=== PATIENT | female | born 2005 | race Caucasian/White ===

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

== ENCOUNTER 2025-01-16 19:10 | Outpatient (REF) | payer MEDICAID, SELFPAY | END 2025-01-16 19:11 | disposition home or self-care (01) | LOC: LBN 19:10 | PROVIDERS: PCP Nurse Practitioner Family; Visit Provider Physician Assistant Medical | DX: J02.9 Acute pharyngitis, unspecified (principal) | CPT/HCPCS: 87070 ==

== ENCOUNTER 2025-04-20 07:49 | Emergency (ER) | payer MEDICAID, SELFPAY ==
[2025-04-20 08:02] VITALS: BP 147/81; PULSE 58; RESP 10; TEMP 36.4; O2SAT 98
[2025-04-20 08:15] LABS: Glucose Negative (Negative)
--- NOTE | 2025-04-20 08:15 | W.ED.GENAD ---
Discharge Plan Disposition Patient Disposition: Home Condition: Stable Discharge Details Clinical Impression: Cannabinoid hyperemesis syndrome, Acute dehydration, Nausea & vomiting Primary Care Provider: Elizabeth Hicks ED Provider: Agustina Laura Home Meds and New Rx's Prescriptions: New promethazine 12.5 mg tablet 12.5 mg PO TID PRN (Reason: nausea and vomiting) Qty: 7 0RF Rx Instructions: Take 1 tablet by mouth 3 times daily as needed for nausea and vomiting promethazine [Promethegan] 25 mg suppository 25 mg HI Q12H PRN (Reason: nausea and vomiting) Qty: 12 0RF Rx Instructions: Use 1 suppository per rectum as needed for unresolved nausea vomiting No Action ondansetron HCl 4 mg tablet 4 mg PO Q8H PRN (Reason: nausea and vomiting) Qty: 14 0RF levonorgestrel-ethinyl estrad [Chateal EQ (28)] 0.15-0.03 mg tablet 1 tab PO DAILY Qty: 84 3RF Discharge Instructions Instructions: Dehydration, Adult ED, Nausea and Vomiting, Adult ED, Cannabis hyperemesis syndrome Additional Instructions: Please sustain from using marijuana for 3 days to see if this helps with the nausea vomiting. Please take the medications as prescribed. They may make you sleepy. Please drink Gatorade or similar electrolytes while having the vomiting for the next couple of days. You may also take Carafate or sulcrafate which you can get [id number]. Follow up with primary care provider in 3-5 days. Return to ED sooner if any worsening or concerns. Increase oral fluids Referrals: Elizabeth Hicks, AGRICULTURAL SCIENCES PROFESSOR [Primary Care Provider, Pediatrics [facility]] - 5 days Clinical Impression: Nausea & vomiting Discharge Data Discharge Date/Time-TO BE ENTERED AT DEPARTURE: 04/20/25 10:25 HPI General Mode of arrival: ambulatory. Date/Time Provider Initiated Documentation: 04/20/25 08:06. Limitations to Documentation: no limitations. Information obtained by: patient, RN notes reviewed and old records reviewed. HPI Narrative: 19-year-old female presents to the ER with a chief complaint of nausea vomiting since 3:00 this morning. Patient does endorse vaping and daily cannabis use, she denies any abdominal pain denies any fever or chills. Denies any problems urinating. She did have Roland last night before bed. She states that she tried a adrienne daniella this morning and was unable. Negative test per cruise staff member prior to my evaluation. She is ANO x 4. Denies any recent travel. Denies any history of abdominal surgeries. Related Data Home Medications ?Medication ?Instructions ?Recorded ?Confirmed ondansetron HCl 4 mg tablet 4 mg PO Q8H PRN nausea and 07/04/22 04/20/25 vomiting #14 tabs levonorgestrel 0.15 mg-ethinyl 1 tab PO DAILY #84 tabs 05/14/24 04/20/25 estradiol 0.03 mg tablet (Chateal EQ (28)) promethazine 12.5 mg tablet 12.5 mg PO TID PRN nausea and 04/20/25 vomiting #7 tabs promethazine 25 mg rectal 25 mg HI Q12H PRN nausea and 04/20/25 suppository (Promethegan) vomiting #12 ea Previous Rx's ?Medication ?Instructions ?Recorded ondansetron HCl 4 mg tablet 4 mg PO Q8H PRN nausea and 07/04/22 vomiting #14 tabs levonorgestrel 0.15 mg-ethinyl 1 tab PO DAILY #84 tabs 05/14/24 estradiol 0.03 mg tablet (Chateal EQ (28)) promethazine 12.5 mg tablet 12.5 mg PO TID PRN nausea and 04/20/25 vomiting #7 tabs promethazine 25 mg rectal 25 mg HI Q12H PRN nausea and 04/20/25 suppository (Promethegan) vomiting #12 ea Allergies Allergy/AdvReac Type Severity Reaction Status Date / Time No Known Allergies Allergy Verified 04/20/25 08:06 General Stated Complaint: Nausea/Vomit/Diar BETZAIDA: 3 Review of Systems All systems reviewed & are unremarkable except as noted in HPI and below Gastrointestinal Gastrointestinal: Reports nausea and Reports vomiting Exam Narrative Exam Narrative: Constitutional: Alert and oriented x3. Appears stated age. Normal body habitus. Head: Normocephalic, no trauma. Eyes: Pupils PERRL, Red reflex noted, EOM's intact. Eyelids symmetrical without lesions, discharge, or swelling. ENT: Bilateral TM's WNL, External ear normal to inspection, no mastoid TTP, swelling, or erythema, Nasal turbinates WNL, no nasal discharge. Normal dentition, Posterior pharynx WNL, no exudate. Chest: RRR, Normal S1, S2, distal pulses intact. Resp: Lungs clear to auscultation bilaterally, no wheezes, rales, or rhonchi. Abdomen: Soft, non-distended, Normoactive bowel sounds all 4 quads. Musculoskeletal: Normal gait, Moves all 4 extremities without difficulty. Skin: No suspicious rashes or lesions. Capillary refill less than 2 sec. Neurologic: Cranial nerves II-XII intact. Alert and oriented x 3. Motor: No deficits noted. Sensory: Intact bilaterally all 4 extremities. Hematologic/Lymphatic: No ecchymosis, no lymphadenopathy. Constitutional: Alert and oriented x3. Appears stated age. Normal body habitus. Course Vital Signs Vital signs: Vital Signs Temperature 36.4 C L 04/20/25 08:02 Pulse 58 L 04/20/25 08:02 Respiratory Rate 10 L 04/20/25 08:02 Blood Pressure 147/81 H 04/20/25 08:02 Pulse Oximetry 98 04/20/25 08:02 Temperature 36.4 C L 04/20/25 08:02 Temperature Source Oral 04/20/25 08:02 Pulse 58 L 04/20/25 08:02 Respiratory Rate 10 L 04/20/25 08:02 Blood Pressure 147/81 H 04/20/25 08:02 Blood Pressure Position Sitting 04/20/25 08:02 Pulse Oximetry 98 04/20/25 08:02 Oxygen Delivery Method Room Air 04/20/25 08:02 Oxygen Flow Rate 0 04/20/25 08:02 Lab/Test Results Lab/Test Results: POC- Test(urine) Negative Medical Decision Making 19-year-old female presents to the ER with a chief complaint of nausea vomiting since 3:00 this morning. Patient does endorse vaping and daily cannabis use, she denies any abdominal pain denies any fever or chills. Denies any problems urinating. She did have Roland last night before bed. She states that she tried a adrienne daniella this morning and was unable. Negative test per cruise staff member prior to my evaluation. She is ANO x 4. Denies any recent travel. Denies any history of abdominal surgeries. Workup ordered including CBC CMP lipase U hCG negative. 1 L normal saline 5 mg Reglan and 20 mg of Pepcid. Differential diagnosis includes not limited to hyperemesis cannabinoid syndrome, gastroenteritis, viral illness, less likely appendicitis as patient has no right lower quadrant or abdominal tenderness, urinary tract infection, pyelonephritis urinalysis is pending at this time. On patient reevaluation she reports she is feeling somewhat better still slightly nauseous is willing to try p.o. challenge. IV is still infusing without difficulty. Patient given crackers and water for p.o. challenge. Patient reevaluation she has not vomited again discussed home care strict return instructions she verbalized standing. Patient discharged ANO times 3, ambulatory from department. This text was generated using [employer] dictation system, please disregard any oddities of phrase or misspellings. Lab Data Lab results reviewed: Yes I reviewed the patient's lab results. Labs: Laboratory Tests Range/Units 04/20/25 04/20/25 07:55 08:32 WBC (4.4-10.8) 10^3/uL 7.40 RBC (3.93-5.22) 10^6/uL 4.87 Hgb (11.2-15.7) g/dL 15.1 Hct (36.0-46.0) % 43.5 MCV (80-95) fL 89 MCH (27.0-33.0) pg 31.0 MCHC (32.0-36.0) % 34.7 RDW (11.7-14.6) % 12.4 Plt Count (130-400) 10^3/uL 319 MPV (8.0-11.0) fL 9.7 Immature Gran % % 0.3 Neutrophils % % 80.5 Lymphocytes % % 16.8 Monocytes % % 1.9 Eosinophils % % 0.1 Basophils % % 0.4 Nucleated RBC % (0.0-0.3) % 0.0 Absolute Neutrophils (1.2-6.7) 10^3/uL 5.96 Absolute Lymphocytes (1.2-3.4) 10^3/uL 1.24 Absolute Monocytes (0.1-0.8) 10^3/uL 0.14 Absolute Eosinophils (0.0-0.7) 10^3/uL 0.01 Absolute Basophils (0.0-0.2) 10^3/uL 0.03 Sodium (136-145) mmol/L 140 Potassium (3.5-5.1) mmol/L 3.9 Chloride (98-107) mmol/L 101 Carbon Dioxide (21.0-32.0) mmol/L 27.3 Anion Gap (3-11) mmol/L 11.7 H BUN (7-18) mg/dL 13 Creatinine (0.55-1.02) mg/dL 0.7 Est GFR (CKD-EPI 2020) (mL/min/1.73m2) 127.69 Glucose (74-106) mg/dL 146 H Calcium (8.5-10.1) mg/dL 9.8 Magnesium (1.8-2.4) mg/dL 1.8 Total Bilirubin (0.2-1.0) mg/dL 0.5 AST (15-37) U/L 21 ALT (14-59) U/L 26 Alkaline Phosphatase (46-116) U/L 81 Total Protein (6.4-8.2) g/dL 8.2 Albumin (3.4-5.0) g/dL 4.8 Lipase (<78) U/L 30 Urine Color (Yellow) Yellow Urine Clarity (Clear) Sl Cloudy Urine pH (5-8) 6.5 Ur Specific [place] (1.005-1.025) >= 1.030 H Urine Protein (Neg-Trace) mg/dL 100 H Urine Ketones (Negative) mg/dL 15 H Urine Blood (Negative) Trace-intact H Urine Nitrite (Negative) Negative Urine Bilirubin (Negative) Negative Urine Urobilinogen (Up to 0.2) mg/dL 0.2 Ur Leukocyte Esterase (Negative) Negative Urine RBC (0-2) HPF 0-2 Urine WBC (0-5) HPF 0-2 Ur Epithelial Cells (Negative) HPF Many Urine Crystals (Negative) HPF Negative Urine Bacteria (Negative) HPF Moderate Urine Casts (Negative) LPF Negative Urine Mucus (Negative) Moderate Ur Culture Indicated? No Urine Glucose (Negative) mg/dL Negative PFSH All Active Problems (Updated 04/20/25 @ 10:11 by Agustina Laura NP) Acute dehydration (Acute) Cannabinoid hyperemesis syndrome (Acute) Gardnerella vaginalis infection (Acute) Vaginal discharge (Acute) Hx of colonoscopy (Chronic) [facility] [place] RUQ pain (Acute) Nausea & vomiting (Acute) normal endoscopy 05[place]02/20[place] [facility] [place] Contusion of right hand (Acute) Lymphadenopathy (Acute) Pelvic pain (Acute) Depression (Chronic) Per registration form Anxiety (Chronic) Per registration form Constipation (Acute) Gastritis (Acute) Ovarian cyst (Acute) Wheezing (Acute) Per registration form asthma or wheezing Vision problems (Acute) Per registration form, seeing far away up close Healthy adolescent (Acute) Medical History History of behavioral and mental health problems Per registration form Heart murmur of Full term 38 weeks 6 lb 13 oz Surgical History History of dental surgery Family History Father Age: 53 No problems noted. Mother Age: 43 Alcohol abuse Asthma Depression Anxiety Paternal Grandfather Hypertension Grandparent unspecified side or gender history of hypertension Heart disease Grandparent unspecified side or gender with history of heart disease Diabetes Grandparent unspecified side or gender with history of diabetes Social History Smoking/Tobacco Use Status: Never Second Hand Exposure: Yes Smoking risk assessment performed?: Yes Alcohol Intake: never Drug use: Never Substance use type: does not use Education Level: high school Details: 12th grade [employer] Pets and animals: Yes Pets and animals: cat(s) and dog(s) Seatbelt use: always Do you feel safe at home: Yes Do you feel safe in your relationship?: Yes
[2025-04-20 08:25] LABS: RBC 0-2 HPF (0-2); WBC 0-2 HPF (0-5)
[2025-04-20 08:26] LABS: C & S Indicated? No
[2025-04-20] MEDS: Normal Saline 1,000 ML 1000 ML IV (08:41)
[2025-04-20] MEDS: Metoclopramide 10 MG/2 ML VIAL 5 MG IVP (08:42)
[2025-04-20] MEDS: Famotidine 20 MG/2 ML VIAL IVP (08:43)
[2025-04-20 08:48] LABS: Abs Immature Grans 0.02 10^3/uL (0.0-0.06); HCT 43.5 % (36.0-46.0); HGB 15.1 g/dL (11.2-15.7); Immature Grans % 0.3 %; MCH 31.0 pg (27.0-33.0); MCHC 34.7 % (32.0-36.0); MCV 89 fL (80-95); MPV 9.7 fL (8.0-11.0); Platelet Count 319 10^3/uL (130-400); RBC 4.87 10^6/uL (3.93-5.22); RDW 12.4 % (11.7-14.6); RDW-SD 40.5 fL; WBC 7.40 10^3/uL (4.4-10.8)
[2025-04-20 08:58] LABS: Lipase 30 U/L (<78)
[2025-04-20 09:01] LABS: ALT 26 U/L (14-59); AST 21 U/L (15-37); Albumin 4.8 g/dL (3.4-5.0); Alkaline Phosphatase 81 U/L (46-116); Anion Gap 11.7 mmol/L (3-11); BUN 13 mg/dL (7-18); Bilirubin, Total 0.5 mg/dL (0.2-1.0); CO2 27.3 mmol/L (21.0-32.0); Calcium 9.8 mg/dL (8.5-10.1); Chloride 101 mmol/L (98-107); Estimated GFR 127.69 (mL/min/1.73m2); Glucose 146 mg/dL (74-106); Magnesium 1.8 mg/dL (1.8-2.4); Potassium 3.9 mmol/L (3.5-5.1); Sodium 140 mmol/L (136-145); Total Protein 8.2 g/dL (6.4-8.2)
== END 2025-04-20 10:25 | disposition home or self-care (01) ==
PROVIDERS: Emergency Medicine; Emergency Provider Registered Nurse Emergency; PCP Nurse Practitioner Family
DX: R11.2 Nausea with vomiting, unspecified (principal); F12.90 Cannabis use, unspecified, uncomplicated; E86.0 Dehydration
CPT/HCPCS: 80053; 81025; 83690; 96361; 96374; 96375; 99284; 81003; 81015; 83735; 85025; J2765

== ENCOUNTER 2025-06-29 11:58 | Outpatient (REF) | payer MEDICAID, SELFPAY ==
[2025-06-29 14:30] LABS: HCT 44.5 % (36.0-46.0); HGB 15.2 g/dL (11.2-15.7); MCH 30.9 pg (27.0-33.0); MCHC 34.2 % (32.0-36.0); MCV 90 fL (80-95); MPV 10.1 fL (8.0-11.0); Platelet Count 303 10^3/uL (130-400); RBC 4.92 10^6/uL (3.93-5.22); RDW 12.0 % (11.7-14.6); RDW-SD 39.8 fL; WBC 6.68 10^3/uL (4.4-10.8)
[2025-06-29 15:03] LABS: ALT 17 U/L (14-59); AST 15 U/L (15-37); Albumin 4.7 g/dL (3.4-5.0); Alkaline Phosphatase 67 U/L (46-116); Anion Gap 10.7 mmol/L (3-11); BUN 10 mg/dL (7-18); Bilirubin, Total 0.7 mg/dL (0.2-1.0); CO2 26.3 mmol/L (21.0-32.0); Calcium 10.1 mg/dL (8.5-10.1); Chloride 101 mmol/L (98-107); Estimated GFR 127.69 (mL/min/1.73m2); Glucose 71 mg/dL (74-106); Potassium 5.0 mmol/L (3.5-5.1); Sodium 138 mmol/L (136-145); TSH 0.52 uIU/mL (0.52-4.13); Total Protein 8.2 g/dL (6.4-8.2)
== END 2025-06-29 11:59 | disposition home or self-care (01) ==
LOC: NCHCN 11:58
DX: R53.83 Other fatigue (principal)
CPT/HCPCS: 80053; 85027; 84443

== ENCOUNTER 2025-07-24 14:15 | Outpatient (REF) | payer MEDICAID, SELFPAY ==
[2025-07-24 22:04] LABS: Vitamin D 25 Total 10 ng/mL (20-100)
[2025-07-24 22:08] LABS: Magnesium 2.1 mg/dL (1.6-2.6)
[2025-07-24 22:09] LABS: ALT 24 U/L (10-49); AST 28 U/L (<34); Albumin 4.9 g/dL (3.4-5.0); Alkaline Phosphatase 67 U/L (46-116); Anion Gap 10.5 mmol/L (3-11); BUN 14 mg/dL (9-23); Bilirubin, Total 0.30 mg/dL (0.2-1.2); CO2 28.5 mmol/L (20.0-31.0); Calcium 10.3 mg/dL (8.3-10.6); Chloride 101 mmol/L (98-107); Glucose 70 mg/dL (74-106); Potassium 4.2 mmol/L (3.5-5.1); Sodium 140 mmol/L (136-145); Total Protein 7.5 g/dL (5.7-8.2)
== END 2025-07-24 14:16 | disposition home or self-care (01) ==
LOC: NCHCN 14:15
DX: R11.2 Nausea with vomiting, unspecified (principal)
CPT/HCPCS: 80053; 82306; 83735; 83970; 84100

== ENCOUNTER 2025-07-29 11:05 | Outpatient (REF) | payer MEDICAID, SELFPAY | END 2025-07-29 11:06 | disposition home or self-care (01) | LOC: LBN 11:05 | PROVIDERS: Visit Provider Physician Assistant Medical | DX: J02.9 Acute pharyngitis, unspecified (principal) | CPT/HCPCS: 87070 ==

== ENCOUNTER 2025-08-07 13:02 | Outpatient (REF) | payer MEDICAID, SELFPAY ==
[2025-08-07 16:03] LABS: Iron 116 ug/dL (50-170); Total Iron Binding Capacity 430 ug/dL (250-425)
[2025-08-07 16:21] LABS: Ferritin 40 ng/mL (7-271); TSH 0.28 uIU/mL (0.48-4.17)
[2025-08-07 23:10] LABS: T3,Free 4.1 pg/mL (2.8-5.3)
== END 2025-08-07 13:03 | disposition home or self-care (01) ==
LOC: NCHCN 13:02
DX: Z13.29 Encounter for screening for other suspected endocrine disorder (principal); R79.0 Abnormal level of blood mineral
CPT/HCPCS: 82728; 83540; 83550; 84439; 84443; 84445; 84481

== ENCOUNTER 2025-08-11 14:24 | Emergency (ER) | payer MEDICAID, SELFPAY ==
[2025-08-11 14:28] VITALS: BP 134/95; PULSE 106; RESP 18; TEMP 36.8; O2SAT 96
[2025-08-11 14:31] VITALS: BP 134/95; PULSE 106; RESP 18; TEMP 36.8; O2SAT 96
--- NOTE | 2025-08-11 14:41 | ED.GENADUL_ITS ---
Discharge Plan Disposition Patient Disposition: Home Discharge Details Clinical Impression: Nausea & vomiting Primary Care Provider: Evelina To ED Provider: Kade Lucas Home Meds and New Rx's Prescriptions: New ondansetron 4 mg tablet,disintegrating 4 mg PO Q6H PRNQty: 14 0RF No Action ondansetron HCl 4 mg tablet 4 mg PO Q8H PRN (Reason: nausea and vomiting) Qty: 14 0RF levonorgestrel-ethinyl estrad [Altavera (28)] 0.15-0.03 mg tablet See Rx Instructions .ROUTE .COMPLEX Qty: 84 3RF Dose Instruction: TAKE ONE TABLET BY MOUTH EVERY DAY Rx Instructions: TAKE ONE TABLET BY MOUTH EVERY DAY Discharge Instructions Instructions: Nausea and Vomiting, Adult ED Additional Instructions: Your evaluation emergency department today was notable for elevated heart rate, lactic acid and white blood cell count. All of these abnormalities can be explained by persistent nausea and vomiting and slight dehydration, I am reassured as your vital signs have normalized after we have repleted fluids via an IV. However, if you are having worsening symptoms including persistent pain or fever I would return emergency department for further evaluation. Please follow-up with your primary care provider regarding your visit to the emergency department today. Be sure to discuss results of all test performed here today to include radiology, and laboratory testing as well as results for any pending cultures. Should your symptoms worsen, or if you develop new concerning symptoms, please return immediately emergency department for further evaluation. Stand Alone Forms: Portal Information HPI General Date/Time Provider Initiated Documentation: 08/11/25 14:34 . HPI Narrative: MDM/Narrative: 19-year-old female with past medical history of functional abdominal pain with nausea and vomiting, presenting for 3 days of nausea vomiting. Vital signs notable for mild tachycardia, physical exam otherwise unremarkable. Will screen for infectious etiology patient's symptoms, however given reassuring abdominal exam and her history we will refrain from obtaining CT imaging at this time. ED course: Labs notable for an elevated lactic acidosis, as well as leukocytosis. Suspect this is likely reactive to patient's persistent vomiting as well as dehydration. 1652 On reassessment, patient notes resolution of nausea and denies any current complaints, other than that she states she has been here too long and wants to leave because she is sleepy. Her abdomen remains soft and nontender, tachycardia is resolved, she requests to leave. Patient stable for discharge at this time. Disposition: Home HPI: 19-year-old female with a past medical history of functional abdominal pain, hyperemesis, presents for evaluation of nausea and vomiting x 3 days. Patient states that since Sunday evening she has been unable to keep anything down including water, notes intermittent diffuse abdominal pain which is relieved following episodes of emesis. Notes accompanying subjective fever and chills, as well as a preceding runny nose, sore throat 1 week prior which has since resolved as well as some diarrhea which has since resolved. Denies any history of abdominal surgeries, no known drug allergies. ROS: Negative besides as mentioned above Exam: Gen: A&O NAD HEENT: NCAT, EOMI, not icteric. External ears normal. No rhinorrhea. Moist mucous membranes. Neck: Supple, full range of motion, no observable masses, No meningeal sign. Lungs: No Respiratory distress. CV: RRR, no edema. Abdomen: Soft, nondistended, No rebound tenderness. MSK: No joint swelling, no redness. Skin: No rashes, petechiae, lesions. Normal color per patient. Neuro: Normal Gait, Grossly intact. Psych: Appropriate for situation. Labs: Laboratory Tests Range/Units 08/11/25 08/11/25 14:40 15:06 WBC (4.4-10.8) 10^3/uL 12.54 H RBC (3.93-5.22) 10^6/uL 5.08 Hgb (11.2-15.7) g/dL 15.5 Hct (36.0-46.0) % 44.6 MCV (80-95) fL 88 MCH (27.0-33.0) pg 30.5 MCHC (32.0-36.0) % 34.8 RDW (11.7-14.6) % 11.9 Plt Count (130-400) 10^3/uL 384 MPV (8.0-11.0) fL 9.5 Immature Gran % % 0.3 Neutrophils % % 85.9 Lymphocytes % % 11.7 Monocytes % % 1.8 Eosinophils % % 0.0 Basophils % % 0.3 Nucleated RBC % (0.0-0.3) % 0.0 Absolute Neutrophils (1.2-6.7) 10^3/uL 10.77 H Absolute Lymphocytes (1.2-3.4) 10^3/uL 1.47 Absolute Monocytes (0.1-0.8) 10^3/uL 0.23 Absolute Eosinophils (0.0-0.7) 10^3/uL 0.00 Absolute Basophils (0.0-0.2) 10^3/uL 0.04 VBG Lactate (<or=2.0) mmol/L 2.4 H* Sodium (136-145) mmol/L 138 Potassium (3.5-5.1) mmol/L 3.7 Chloride (98-107) mmol/L 100 Carbon Dioxide (20.0-31.0) mmol/L 26.6 Anion Gap (3-11) mmol/L 11.4 H BUN (9-23) mg/dL 17 Creatinine (0.55-1.02) mg/dL 0.82 Est GFR (CKD-EPI 2020) (mL/min/1.73m2) 89.19 Glucose (74-106) mg/dL 105 Calcium (8.3-10.6) mg/dL 9.7 Magnesium (1.6-2.6) mg/dL 2.0 Total Bilirubin (0.2-1.2) mg/dL 0.6 AST (<34) U/L 27 ALT (10-49) U/L 25 Alkaline Phosphatase (46-116) U/L 83 Total Protein (5.7-8.2) g/dL 8.0 Albumin (3.2-5.0) g/dL 5.0 Lipase (<53) U/L 40 Serum HCG, Qual Negative Urine Color (Yellow) Yellow Urine Clarity (Clear) Clear Urine pH (5-8) 6.0 Ur Specific [place] (1.005-1.025) >= 1.030 H Urine Protein (Neg-Trace) mg/dL 100 H Urine Ketones (Negative) mg/dL 80 H Urine Blood (Negative) Negative Urine Nitrite (Negative) Negative Urine Bilirubin (Negative) Small H Urine Urobilinogen (Up to 0.2) mg/dL 0.2 Ur Leukocyte Esterase (Negative) Negative Urine RBC (0-2) HPF Negative Urine WBC (0-5) HPF 5-10 Ur Epithelial Cells (Negative) HPF Moderate Urine Crystals (Negative) HPF Negative Urine Bacteria (Negative) HPF Negative Urine Mucus (Negative) Heavy Ur Culture Indicated? No Urine Glucose (Negative) mg/dL Negative Related Data Home Medications ?Medication ?Instructions ?Recorded ?Confirmed ondansetron HCl 4 mg tablet 4 mg PO Q8H PRN nausea and 07/04/22 08/11/25 vomiting #14 tabs levonorgestrel 0.15 mg-ethinyl See Rx Instructions .Ro chip 06/16/25 08/11/25 estradiol 0.03 mg tablet (Altavera .COMPLEX #84 tabs (28)) ondansetron 4 mg disintegrating 4 mg PO Q6H PRN #14 ta bs 08/11/25 tablet Previous Rx's ?Medication ?Instructions ?Recorded ondansetron HCl 4 mg tablet 4 mg PO Q8H PRN nausea and 07/04/22 vomiting #14 tabs levonorgestrel 0.15 mg-ethinyl See Rx Instructions .Ro chip 06/16/25 estradiol 0.03 mg tablet (Altavera .COMPLEX #84 tabs (28)) ondansetron 4 mg disintegrating 4 mg PO Q6H PRN #14 ta bs 08/11/25 tablet Allergies Allergy/AdvReac Type Severity Reaction Status Date / Time No Known Allergies Allergy Verified 04/20/25 08:06 General Stated Complaint: Abd Prob BETZAIDA: 3 Course Vital Signs Vital signs: Vital Signs Temperature 36.8 C 08/11/25 14:28 Pulse 106 H 08/11/25 14:28 Respiratory Rate 18 08/11/25 14:28 Blood Pressure 134/95 H 08/11/25 14:28 Pulse Oximetry 96 08/11/25 14:28 Temperature 36.8 C 08/11/25 14:31 Pulse 106 H 08/11/25 14:31 Respiratory Rate 18 08/11/25 14:31 Blood Pressure 134/95 H 08/11/25 14:31 Pulse Oximetry 96 08/11/25 14:31 Pain Level 4 08/11/25 14:31 PFSH All Active Problems (Updated 08/11/25 @ 16:57 by Kade Lucas MD) Dysmenorrhea (Acute) Gardnerella vaginalis infection (Acute) Vaginal discharge (Acute) Hx of colonoscopy (Chronic) [facility] [place] findings RUQ pain (Acute) Nausea & vomiting (Acute) normal endoscopy 05/02/2024 [facility] [place], bx pending Contusion of right hand (Acute) Lymphadenopathy (Acute) Pelvic pain (Acute) Depression (Chronic) Per registration form Anxiety (Chronic) Per registration form Constipation (Acute) Gastritis (Acute) Ovarian cyst (Acute) Wheezing (Acute) Per registration form asthma or wheezing Vision problems (Acute) Per registration form, seeing far away up close Healthy adolescent (Acute) Medical History (Updated 08/11/25 @ 16:57 by Kade Lucas MD) History of behavioral and mental health problems Per registration form Heart murmur of Full term 38 weeks 6 lb 13 oz Surgical History (Updated 08/05/25 @ 10:02 by Ida Navarro LPN) H/O endoscopy History of dental surgery Family History Father Age: 53 No problems noted. Mother Age: 43 Alcohol abuse Asthma Depression Anxiety Paternal Grandfather Hypertension Grandparent unspecified side or gender history of hypertension Heart disease Grandparent unspecified side or gender with history of heart disease Diabetes Grandparent unspecified side or gender with history of diabetes Social History Smoking/Tobacco Use Status: Never Second Hand Exposure: Yes Smoking risk assessment performed?: Yes Alcohol Intake: never Drug use: Never Substance use type: does not use Education Level: high school Details: 12th grade [employer] Pets and animals: Yes Pets and animals: cat(s) and dog(s) Seatbelt use: always Do you feel safe at home: Yes Do you feel safe in your relationship?: Yes
[2025-08-11 14:57] LABS: Glucose Negative (Negative)
[2025-08-11] MEDS: Droperidol 5 MG/2 ML VIAL IVP (15:05)
[2025-08-11] MEDS: Normal Saline 1,000 ML 2000 ML IV (15:06)
[2025-08-11 15:19] LABS: Abs Immature Grans 0.04 10^3/uL (0.0-0.06); HCT 44.6 % (36.0-46.0); HGB 15.5 g/dL (11.2-15.7); Immature Grans % 0.3 %; MCH 30.5 pg (27.0-33.0); MCHC 34.8 % (32.0-36.0); MCV 88 fL (80-95); MPV 9.5 fL (8.0-11.0); Platelet Count 384 10^3/uL (130-400); RBC 5.08 10^6/uL (3.93-5.22); RDW 11.9 % (11.7-14.6); RDW-SD 38.5 fL; WBC 12.54 10^3/uL (4.4-10.8)
[2025-08-11 15:23] LABS: RBC Negative HPF (0-2)
[2025-08-11 15:24] LABS: C & S Indicated? No
[2025-08-11 15:34] LABS: Lipase 40 U/L (<53)
[2025-08-11 15:36] LABS: Magnesium 2.0 mg/dL (1.6-2.6)
[2025-08-11 15:37] LABS: ALT 25 U/L (10-49); AST 27 U/L (<34); Albumin 5.0 g/dL (3.2-5.0); Alkaline Phosphatase 83 U/L (46-116); Anion Gap 11.4 mmol/L (3-11); BUN 17 mg/dL (9-23); Bilirubin, Total 0.6 mg/dL (0.2-1.2); CO2 26.6 mmol/L (20.0-31.0); Calcium 9.7 mg/dL (8.3-10.6); Chloride 100 mmol/L (98-107); Glucose 105 mg/dL (74-106); Potassium 3.7 mmol/L (3.5-5.1); Sodium 138 mmol/L (136-145); Total Protein 8.0 g/dL (5.7-8.2)
[2025-08-11 15:43] LABS: HCG Qual (Serum) Negative
[2025-08-11] MEDS: diphenhydrAMINE 50 MG/ML VIAL 12.5 MG IM/IVP (15:44)
[2025-08-11 17:07] VITALS: BP 137/96; PULSE 83; RESP 16; O2SAT 96
== END 2025-08-11 17:33 | disposition home or self-care (01) ==
PROVIDERS: Emergency Provider General Practice
DX: R11.2 Nausea with vomiting, unspecified (principal); E86.0 Dehydration
CPT/HCPCS: 99283; 99284; 96374; 96375; 80053; 83690; 81003; 81015; 83605; 83735; 84703; 85025; J1200; J1790

== ENCOUNTER 2025-08-14 12:21 | Outpatient (CLI) | payer MEDICAID, SELFPAY ==
[2025-08-14 14:09] LABS: ESR 1 mm/hr (0-20)
[2025-08-14 14:10] LABS: Abs Immature Grans 0.02 10^3/uL (0.0-0.06); HCT 41.7 % (36.0-46.0); HGB 14.6 g/dL (11.2-15.7); Immature Grans % 0.2 %; MCH 31.1 pg (27.0-33.0); MCHC 35.0 % (32.0-36.0); MCV 89 fL (80-95); MPV 10.1 fL (8.0-11.0); Platelet Count 354 10^3/uL (130-400); RBC 4.70 10^6/uL (3.93-5.22); RDW 11.5 % (11.7-14.6); RDW-SD 37.3 fL; WBC 9.00 10^3/uL (4.4-10.8)
[2025-08-14 15:06] LABS: TSH (W/Ref FT4) 0.96 uIU/mL (0.48-4.17)
[2025-08-14 15:09] LABS: C-Reactive Protein < 0.50 mg/dL (<=0.50)
== END 2025-08-14 12:22 | disposition home or self-care (01) ==
LOC: LBO 12:21
PROVIDERS: Visit Provider Obstetrics & Gynecology
DX: R21 Rash and other nonspecific skin eruption (principal); R11.15 Cyclical vomiting syndrome unrelated to migraine; D72.829 Elevated white blood cell count, unspecified
CPT/HCPCS: 36415; 83516; 85652; 84235; 84443; 85025; 86038; 86140; 86431; 86800

== ENCOUNTER 2025-08-20 10:21 | Outpatient (REF) | payer MEDICAID, SELFPAY | END 2025-08-20 10:22 | disposition home or self-care (01) | LOC: NCHCN 10:21 | DX: R19.7 Diarrhea, unspecified (principal) | CPT/HCPCS: 87015; 87269; 87272 ==

== ENCOUNTER → 2025-08-21 00:13 | Outpatient (CLI) | payer MEDICAID, SELFPAY ==
--- NOTE | 2025-08-21 | DI.US_ITS ---
Exam(s) US ABDOMEN LIMITED EXAM: US ABDOMEN LIMITED CLINICAL HISTORY: NAUSEA, VOMITING, R11.2, FOLLOW UP LIVER LESION 03/07/2024 TECHNIQUE: Ultrasound abdomen performed using standard protocol. COMPARISON: CT CT ABDOMEN PELVIS W from 10/08/2019 US US ABDOMEN LIMITED from 03/07/2024 FINDINGS: PANCREAS: Normal where visualized. LIVER: Normal. Hepatopetal flow in the Portal Vein. The liver measures in 12.9 cm length. There is again seen a well-circumscribed homogeneously hyperechoic mass in the left lobe of the liver. Measures 1.2 x 0.9 x 1.3 cm. This has shown very slight increase in size compared to the prior examination. No other hepatic masses are seen. GALLBLADDER: No evidence of cholelithiasis. No evidence of wall thickening. No pericholecystic fluid identified. BILIARY SYSTEM: Common bile duct measures < 7 mm. No intrahepatic biliary ductal dilation. PANG'S SIGN: Negative. RIGHT KIDNEY: Kidney is normal in size. No evidence of renal calculi. No evidence of hydronephrosis. No renal mass or cyst identified. ASCITES: None seen. IMPRESSION: Persistent hyperechoic left lobe mass. Sonographically, primary diagnostic consideration is for hepatic hemangioma. MRI of the liver without and with contrast may be obtained for further characterization. DATA REPOSITORY:
== END ==
LOC: DI 00:13
DX: R11.2 Nausea with vomiting, unspecified (principal); C78.02 Secondary malignant neoplasm of left lung
CPT/HCPCS: 76705